=== PATIENT | female | born 1980 | race American Indian/Alaskan Native ===

== ENCOUNTER 2019-01-26 14:39 | Emergency (ER) | payer BC ==
--- NOTE | 2019-01-26 15:17 | Emergency Department Report ---
Blank Doc - Documentation Documentation: This is a 38-year-old female ramsey tpresents with pelvic pressure with some n/v. Denies any vaginal bleeding. stated has some vaginal discharge. This initial assessment/diagnostic orders/clinical plan/treatment(s) is/are subject to change based on patient's health status, clinical progression and re- assessment by fellow clinical providers in the ED. Further treatment and workup at subsequent clinical providers discretion. Patient/guardians urged not to elope from the ED as their condition may be serious if not clinically assessed and managed. Initial orders include: 1- Patient sent to [facility] for further evaluation and treatment 2- UA 3- wet prep/pelvic exam to be done
[2019-01-26] MEDS ORDERED: TYLENOL PO ONE (15:46)
[2019-01-26 16:25] LABS: HCG Qualitative,Urine Negative (Negative)
[2019-01-26 16:29] LABS: Bilirubin,Urine NEG (Negative); Blood,Urine NEG (Negative); Color,Urine Yellow (Yellow); Mucus,Urine FEW /HPF; Protein,Urine <15 mg/dL mg/dL (Negative); Urobilinogen,Urine < 2.0 mg/dL (<2.0)
[2019-01-26] MEDS ORDERED: TORADOL IV ONE ×2 (17:36→21:54)
[2019-01-26] MEDS ORDERED: ZOFRAN IV ONE (17:36)
[2019-01-26] MEDS ORDERED: NACL 0.9% 1000 ML 1,000 ML IV ONE (17:36)
--- NOTE | 2019-01-26 17:41 | Emergency Department Report ---
<ASHELY CAMARILLO RUFUSMARLA - Last Filed: 01/26/19 18:58> ED Abdominal Pain HPI - General Chief Complaint: Urogenital-Female Stated Complaint: VAGINAL PAIN Time Seen by Provider: 01/26/19 15:16 Source: patient Mode of arrival: Ambulatory Limitations: No Limitations - History of Present Illness Initial Comments: This is a 38-year-old -[place] female who presents to the emergency room with vaginal pressure with urination and nausea and vomiting that started this morning. Her last menstrual period was 12/11/2018, 8 abortions. She also reports urinary urgency, frequency, she feels, and diarrhea. She denies dysur ia. She is currently not on control. Patient states she does not believe she is risk of STD. She denies vaginal discharge, dysuria, fever. MD Complaint: abdominal pain -: This morning Location: suprapubic Radiation: none Migration to: no migration Severity: severe Severity scale (0 -10): 10 Quality: other (pressure) Consistency: intermittent Improves With: nothing Worsens With: nothing Associated Symptoms: nausea, vomiting, diarrhea. denies: fever, chills, constipation, dysuria, hematemesis, hematochezia, melena, hematuria, anorexia, syncope Treatments Prior to Arrival: NSAIDs - Related Data LMP Date: 12/11/18 Previous Rx's Medication Instructions Recorded Last Taken Type Acetaminophen/Codeine [Tylenol 1 tab PO Q6H PRN #15 tab 01/26/19 Unknown Rx /Codeine # 3 tab] Ketorolac [Toradol] 10 mg PO Q8H PRN #20 tablet 01/26/19 Unknown Rx Ondansetron [Zofran Odt] 4 mg PO Q8HR #15 tab.rapdis 01/26/19 Unknown Rx Tamsulosin [Flomax] 0.4 mg PO QDAY #7 cap 01/26/19 Unknown Rx cephALEXin [Keflex] 500 mg PO Q6HR #40 capsule 01/26/19 Unknown Rx Allergies Allergy/AdvReac Type Severity Reaction Status Date / Time No Known Allergies Allergy Unverified 01/26/19 14:50 ED Review of Systems Constitutional: denies: chills, fever Respiratory: denies: cough, shortness of breath, wheezing Cardiovascular: denies: chest pain, palpitations Gastrointestinal: abdominal pain, nausea, vomiting. denies: diarrhea Genitourinary: denies: urgency, dysuria, discharge Musculoskeletal: denies: back pain, joint swelling, arthralgia Skin: denies: rash, lesions Neurological: denies: headache, weakness, paresthesias Psychiatric: denies: anxiety, depression ED Past Medical Hx - Past Medical History Previous Medical History?: No - Surgical History Past Surgical History?: No - Social History Smoking Status: Never Smoker Substance Use Type: None - Medications Home Medications: Home Medications Medication Instructions Recorded Confirmed Last Taken Type Acetaminophen/Codeine [Tylenol 1 tab PO Q6H PRN #15 tab 01/26/19 Unknown Rx /Codeine # 3 tab] Ketorolac [Toradol] 10 mg PO Q8H PRN #20 tablet 01/26/19 Unknown Rx Ondansetron [Zofran Odt] 4 mg PO Q8HR #15 tab.rapdis 01/26/19 Unknown Rx Tamsulosin [Flomax] 0.4 mg PO QDAY #7 cap 01/26/19 Unknown Rx cephALEXin [Keflex] 500 mg PO Q6HR #40 capsule 01/26/19 Unknown Rx ED Physical Exam - General Limitations: No Limitations General appearance: alert, in no apparent distress - Respiratory Respiratory exam: Present: normal lung sounds bilaterally. Absent: respiratory distress - Cardiovascular Cardiovascular Exam: Present: regular rate, normal rhythm. Absent: systolic murmur, diastolic murmur, rubs, gallop - GI/Abdominal GI/Abdominal exam: Present: soft, tenderness (suprapubic tenderness), normal bowel sounds. Absent: distended, guarding, rebound, rigid, organomegaly, mass - Back Exam Back exam: Absent: CVA tenderness (R), CVA tenderness (L) - Neurological Exam Neurological exam: Present: alert, oriented X3 - Psychiatric Psychiatric exam: Present: normal affect, normal mood - Skin Skin exam: Present: warm, dry, intact, normal color. Absent: rash ED Medical Decision Making - Lab Data Result diagrams: 01/26/19 17:49 01/26/19 17:49 Lab Results 01/26/19 01/26/19 01/26/19 Range/Units 17:49 17:49 Unknown WBC 9.4 (4.5-11.0) K/mm3 RBC 4.20 (3.65-5.03) M/mm3 Hgb 13.8 (10.1-14.3) gm/dl Hct 40.4 (30.3-42.9) % MCV 96 (79-97) fl MCH 33 H (28-32) pg MCHC 34 (30-34) % RDW 12.9 L (13.2-15.2) % Plt Count 229 (140-440) K/mm3 Sodium 137 (137-145) mmol/L Potassium 3.7 (3.6-5.0) mmol/L Chloride 101.2 (98-107) mmol/L Carbon Dioxide 22 (22-30) mmol/L Anion Gap 18 mmol/L BUN 11 (7-17) mg/dL Creatinine 1.0 (0.7-1.2) mg/dL Estimated GFR > 60 ml/min BUN/Creatinine Ratio 11 % Glucose 108 H (65-100) mg/dL Calcium 9.1 (8.4-10.2) mg/dL Total Bilirubin 0.40 (0.1-1.2) mg/dL AST 15 (5-40) units/L ALT 11 (7-56) units/L Alkaline Phosphatase 50 (35-129) units/L Total Protein 7.5 (6.3-8.2) g/dL Albumin 4.3 (3.9-5) g/dL Albumin/Globulin Ratio 1.3 % Lipase 23 (13-60) units/L Urine Color Yellow (Yellow) Urine Turbidity Slightly-cloudy (Clear) Urine pH 6.0 (5.0-7.0) Ur Specific Crawford 1.015 (1.003-1.030) Urine Protein <15 mg/dl (Negative) mg/dL Urine Glucose (UA) Neg (Negative) mg/dL Urine Ketones Neg (Negative) mg/dL Urine Blood Neg (Negative) Urine Nitrite Neg (Negative) Ur Reducing Substances Not Reportable Urine Bilirubin Neg (Negative) Urine Ictotest Not Reportable Urine Urobilinogen < 2.0 (<2.0) mg/dL Ur Leukocyte Esterase Sm (Negative) Urine WBC (Auto) 25.0 H (0.0-6.0) /HPF Urine RBC (Auto) 3.0 (0.0-6.0) /HPF U Epithel Cells (Auto) 5.0 (0-13.0) /HPF Urine Mucus Few /HPF Urine HCG, Qual Negative (Negative) - Medical Decision Making Patient was examined by me. Vitals are normal and patient is in no acute distress. Obtained a labs and CT of abdomen and pelvis. Patient denies vaginal discharge, dysuria. As a side obtained. Patient given analgesics and normal saline. Chart signed to Alvarez TORIBIO pending CT of abdomen and pelvis. ED Disposition Clinical Impression: Kidney calculi, Acute urinary tract infection Abdominal pain Qualifiers: Abdominal location: lower abdomen, unspecified Qualified Code(s): R10.30 - Lower abdominal pain, unspecified Disposition: TO HOME OR SELFCARE Condition: Stable Instructions: Kidney Stones (ED), Abdominal Pain (ED), Urinary Tract Infection in Women (ED) Additional Instructions: TAKE MEDICATIONS WITH FOOD, DRINK PLENTY OF FLUIDS AND FOLLOW UP WITH THE UROLOGIST DR. SÁNCHEZ ADVISED. Prescriptions: Tamsulosin [Flomax] 0.4 mg PO QDAY #7 cap cephALEXin [Keflex] 500 mg PO Q6HR #40 capsule Ketorolac [Toradol] 10 mg PO Q8H PRN #20 tablet PRN Reason: Pain Acetaminophen/Codeine [Tylenol /Codeine # 3 tab] 1 tab PO Q6H PRN #15 tab PRN Reason: Pain , Severe (7-10) Ondansetron [Zofran Odt] 4 mg PO Q8HR #15 tab.rapdis Referrals: RHIANNA SÁNCHEZ MD [Staff Physician] - 3-5 Days Forms: Work/School Release Form(ED) Print Language: SOUTH AFRICAN <ZULEYMA HONG - Last Filed: 01/26/19 22:11> ED Review of Systems ROS: Stated complaint: VAGINAL PAIN Other details as noted in HPI ED Course Vital Signs 01/26/19 01/26/19 01/26/19 15:16 18:15 18:21 Temperature 98.4 F Pulse Rate 73 Respiratory 18 16 16 Rate Blood Pressure 152/106 Blood Pressure [Right] O2 Sat by Pulse 98 Oximetry 01/26/19 01/26/19 19:04 21:11 Temperature 98.5 F Pulse Rate 72 Respiratory 16 18 Rate Blood Pressure Blood Pressure 151/99 [Right] O2 Sat by Pulse 100 Oximetry - Reevaluation(s) Reevaluation #1: 01/26/19 21:57 Patient is alert and oriented 3 and is not in distress. Blood test results were reviewed and are unremarkable except for a urinalysis that shows acute urinary tract infection. The abdomen and pelvis CT scan without contrast shows a 6 mm stone distal to the left ureter just above the ureterovesicular junction. There is no evidence of a pelvic mass, fluid collection or inflammation. There are multiple bilateral nonobstructing calyceal stones. Patient was treated for pain in the ED and also received 1 g of Rocephin IV in the ED with normal saline IV fluids. On reevaluation, patient's pain is well- controlled and is discharged home with a referral to the urologist for follow- up. ED Medical Decision Making - Lab Data Result diagrams: 01/26/19 17:49 01/26/19 17:49 - Radiology Data Radiology results: report reviewed, image reviewed The abdomen and pelvis CT scan without contrast shows a 6 mm stone distal to the left ureter just above the ureterovesicular junction. There is no evidence of a pelvic mass, fluid collection or inflammation. There are multiple bilateral nonobstructing calyceal stones. - Medical Decision Making Patient is alert and oriented 3 and is not in distress. Blood test results were reviewed and are unremarkable except for a urinalysis that shows acute urinary tract infection. The abdomen and pelvis CT scan without contrast shows a 6 mm stone distal to the left ureter just above the ureterovesicular junction. There is no evidence of a pelvic mass, fluid collection or inflammation. There are multiple bilateral nonobstructing calyceal stones. Patient was treated for pain in the ED and also received 1 g of Rocephin IV in the ED with normal saline IV fluids. On reevaluation, patient's pain is well- controlled and is discharged home with a referral to the urologist Dr. Sánchez for outpatient follow-up. - Differential Diagnosis Abdominal pain; Kidney stones; Acute urinary tract infection Critical care attestation.: If time is entered above; I have spent that time in minutes in the direct care of this critically ill patient, excluding procedure time. ED Disposition Is pt being admited?: No Does the pt Need Aspirin: No Time of Disposition: 22:09
[2019-01-26 17:58] LABS: Hematocrit 40.4 % (30.3-42.9); Hemoglobin 13.8 gm/dl (10.1-14.3); Mean Corpuscular HGB Conc 34 % (30-34); Mean Corpuscular Volume 96 fl (79-97); Platelet Count 229 K/mm3 (140-440); Red Cell Distribution Width 12.9 % (13.2-15.2)
[2019-01-26 18:23] LABS: Alanine Aminotransferase 11 units/L (7-56); Albumin 4.3 g/dL (3.9-5); BUN/Creatinine Ratio 11; Blood Urea Nitrogen 11 mg/dL (7-17); Calcium 9.1 mg/dL (8.4-10.2); Hemolysis Index 7
[2019-01-26] MEDS ORDERED: MORPHINE IV ONE ×2 (18:57→21:54)
[2019-01-26] MEDS ORDERED: ROCEPHIN/NS 1 GM/50 ML 1 GM/50 ML BAG IV ONE (19:08)
--- NOTE | 2019-01-26 19:56 | Cat Scan Report ---
CT abdomen pelvis wo con INDICATION: lower abdominal pain, rule out stones. TECHNIQUE: All CT scans at this location are performed using the following dose modulation technique: Automated exposure control. CONTRAST: None. COMPARISON: None available. CT abdomen: Evaluation the parenchymal organs demonstrates 3 1 mm nonobstructing right renal stones. 3 left-sided stones measure 1-2 mm. There is moderate distention of the left renal collecting system and ureter. A small amount of fluid is seen adjacent to the left kidney. The remaining parenchymal or reinaldo are unremarkable. Negative for abdominal mass, fluid collection or inflammation. The bowel is not dilated or thickened. CT PELVIS: Distention of the left ureter extends to the level of a 6 mm stone just above the ureterov esical junction. Negative for pelvic mass, fluid collection or inflammation. IMPRESSION: 1. 6 mm stone distal left ureter with relatively high-grade obstruction and pyelosinus backflow. 2. Small nonobstructing calyceal stones. Signer Name: Nilson Knight MD Signed: 01/26/2019 7:52 PM Workstation Name: [id number]
[2019-01-26] MEDS ORDERED: REGLAN IV ONE (21:55)
[2019-01-26 22:58] VITALS: BP 147/98
== END 2019-01-26 22:59 | disposition home or self-care (01) ==
LOC: ED 14:39
DX: N39.0 Urinary tract infection, site not specified (principal); N20.0 Calculus of kidney; R11.2 Nausea with vomiting, unspecified; Z79.899 Other long term (current) drug therapy
CPT/HCPCS: 36415; 74176; 80053; 81001; 81025; 83690; 85027; 87086; 96361; 96365; 96375; 96376; 99284; J0696; J1885; J2270; J2405; J2765; J7030

== ENCOUNTER 2019-01-28 13:17 | Inpatient (IN) | payer BC ==
[2019-01-28] MEDS ORDERED: ANCEF/STERILE WATER 2 GM/20 ML IV NR (14:00)
--- NOTE | 2019-01-28 14:15 | Anesthesia Consultation ---
Anesthesia Consult and Med Hx Date of service: 01/28/19 - Airway Anesthetic Teeth Evaluation: Poor, Chipped, Edentulous ROM Head & Neck: Adequate Mental/Hyoid Distance: Adequate Mallampati Class: Class II Intubation Access Assessment: Good - Pulmonary Exam CTA: Yes - Cardiac Exam Cardiac Exam: RRR - Pre-Operative Health Status ASA Pre-Surgery Classification: ASA2 Proposed Anesthetic Plan: General
--- NOTE | 2019-01-28 14:15 | Anesthesia Day of Surgery ---
Anesthesia Day of Surgery - Day of Surgery Patient Examined: Yes Patient H&P Reviewed: Yes Patient is NPO: Yes
[2019-01-28] MEDS ORDERED: SUBLIMAZE IV SCH (14:22)
[2019-01-28] MEDS ORDERED: LACTATED RINGERS 1,000 ML IV SCH (15:00)
[2019-01-28] MEDS ORDERED: WATER FOR IRRIG STERILE IR ONE (16:05)
[2019-01-28] MEDS ORDERED: DIPRIVAN 10 MG/ML IV ONE (16:12)
[2019-01-28] MEDS ORDERED: SUBLIMAZE ONE ×2 (16:14→17:08)
[2019-01-28] MEDS ORDERED: DILAUDID ONE (16:32)
[2019-01-28] MEDS ORDERED: XYLOCAINE CARDIAC IV ONE (16:42)
[2019-01-28] MEDS ORDERED: ZOFRAN ONE (16:54)
[2019-01-28] MEDS ORDERED: DECADRON ONE (16:54)
[2019-01-28] MEDS ORDERED: TORADOL ONE (17:07)
[2019-01-28] MEDS ORDERED: NORCO 5/325 PO PRN (17:27)
[2019-01-28] MEDS ORDERED: SODIUM CHLORIDE FLUSH SYRINGE 10 ML IV PRN (17:27)
[2019-01-28] MEDS ORDERED: AMBIEN PO PRN (17:27)
[2019-01-28] MEDS ORDERED: TYLENOL PO PRN (17:27)
--- NOTE | 2019-01-28 17:27 | Short Stay Summary ---
Short Stay Documentation Date of service: 01/28/19 - History H&P: obtained from office - Allergies and Medications Current Medications: Allergies No Known Allergies Allergy (Unverified 01/26/19 14:50) Home Medications Medication Instructions Recorded Confirmed Last Taken Type Acetaminophen/Codeine [Tylenol 1 tab PO Q6H PRN #15 tab 01/26/19 Unknown Rx /Codeine # 3 tab] Ketorolac [Toradol] 10 mg PO Q8H PRN #20 tablet 01/26/19 Unknown Rx Ondansetron [Zofran Odt] 4 mg PO Q8HR #15 tab.rapdis 01/26/19 Unknown Rx Tamsulosin [Flomax] 0.4 mg PO QDAY #7 cap 01/26/19 Unknown Rx cephALEXin [Keflex] 500 mg PO Q6HR #40 capsule 01/26/19 Unknown Rx Active Medications Cefazolin Sodium (Ancef/Sterile Water 2 Gm/20 Ml) 2 gm IV PREOP NR Stop: 01/28/19 23:59 Fentanyl (Sublimaze) 50 mcg IV ONCE VINICIUS Stop: 01/28/19 23:59 Last Admin: 01/28/19 14:30 Dose: 50 mcg Documented by: Lactated Ringer's (Lactated Ringers) 1,000 mls @ 100 mls/hr IV DIRECT VINICIUS Last Admin: 01/28/19 14:35 Dose: 100 mls/hr Documented by: - Brief post op/procedure progress note Date of procedure: 01/28/19 Pre-op diagnosis: left distal ureteral stone---6mm Post-op diagnosis: other (impacted with edema & stricture) Procedure: cysto, bilat rpg, left ureteroscopy attempted stent placement Anesthesia: GETA Surgeon: RHIANNA SHERIDAN Estimated blood loss: minimal Pathology: none Condition: stable - Hospital course Hospital course: unable to see stone unable to place stent significant edema spoke with Dr. Churchill---will place perc tube home with perc tube - Disposition Condition at discharge: Stable Disposition: DC-01 TO HOME OR SELFCARE Short Stay Discharge Plan Follow up with: ATIF ANDERSON MD [Primary Care Provider] - 7 Days
[2019-01-28] MEDS: NORMODYNE IV PRN (17:35)
[2019-01-28] MEDS ORDERED: NORMODYNE IV ONE (17:46)
[2019-01-28] MEDS ORDERED: NACL 0.45% 1000 ML 1,000 ML IV SCH (18:00)
[2019-01-28] MEDS ORDERED: NACL 0.9% 1,000 ML IR ONE (18:19)
--- NOTE | 2019-01-28 18:40 | Event Note ---
Date: 01/28/[address] scan. Mild left hydronephrosis with mild to moderate hydroureter and small left UVJ calculi with request for left nephrostomy tube placement due to unsuccessful left renal stent attempt. Plan for nephrostomy tube placement tomorrow. NPO after MN except meds. Will likely convert to ureteral stent placement in 1 week and then remove nephrostomy tube.
[2019-01-28 19:23] LABS: Hematocrit 36.6 % (30.3-42.9); Hemoglobin 12.1 gm/dl (10.1-14.3); Mean Corpuscular HGB Conc 33 % (30-34); Mean Corpuscular Volume 96 fl (79-97); Platelet Count 119 K/mm3 (140-440); Red Blood Count 3.82 M/mm3 (3.65-5.03); Red Cell Distribution Width 13.3 % (13.2-15.2)
[2019-01-28 19:25] LABS: Calcium 8.4 mg/dL (8.4-10.2)
[2019-01-28 19:32] LABS: INR 1.12 (0.87-1.13)
[2019-01-28 19:33] LABS: Partial Thromboplastin Time 30.5 Sec. (24.2-36.6)
[2019-01-28 21:06] LABS: Total Cells Counted 100
[2019-01-28 21:07] LABS: Band Neutrophils # (Manual) 0.3 K/mm3; Basophils % (Manual) 0 % (0.0-1.8); Monocytes % (Manual) 0 % (0.0-7.3)
[2019-01-28 21:08] LABS: Anisocytosis 1+; Platelet Estimate Consistent w Auto
[2019-01-28] MEDS: ZOFRAN IV PRN (21:26)
[2019-01-29] MEDS: MORPHINE IV PRN ×5 (01:03→20:21)
[2019-01-29 05:28] LABS: Hematocrit 35.5 % (30.3-42.9); Hemoglobin 11.9 gm/dl (10.1-14.3); Mean Corpuscular HGB Conc 34 % (30-34); Mean Corpuscular Volume 95 fl (79-97); Platelet Count 125 K/mm3 (140-440); Red Blood Count 3.74 M/mm3 (3.65-5.03); Red Cell Distribution Width 13.1 % (13.2-15.2)
[2019-01-29 05:51] LABS: Calcium 8.4 mg/dL (8.4-10.2)
[2019-01-29 07:20] LABS: Band Neutrophils # (Manual) 1.2 K/mm3; Basophils % (Manual) 0 % (0.0-1.8); Eosinophils % (Manual) 0 % (0.0-4.3); Total Cells Counted 100
[2019-01-29 07:22] LABS: Platelet Estimate Consistent w Auto
--- NOTE | 2019-01-29 08:23 | Consultation ---
History of Present Illness - Reason for Consult Consult date: 01/29/19 Left hydronephrosis - History of Present Illness 38-year-old female with left-sided flank pain and suprapubic pain nausea and vomiting and presented to the emergency room on 01/26/19 who then saw urologist Dr. Sánchez in the office who scheduled her for stent placement. Stent placement was unsuccessful and request for interventional radiology to assist with percutaneous nephrostomy was performed. Patient was visited this morning and brought downstairs for nephrostomy tube placement. Past History Past Medical History: No medical history Past Surgical History: No surgical history Social history: no significant social history Family history: no significant family history Medications and Allergies Allergies Allergy/AdvReac Type Severity Reaction Status Date / Time No Known Allergies Allergy Unverified 01/26/19 14:50 Home Medications Medication Instructions Recorded Confirmed Last Taken Type Acetaminophen/Codeine [Tylenol 1 tab PO Q6H PRN #15 tab 01/26/19 Unknown Rx /Codeine # 3 tab] Ketorolac [Toradol] 10 mg PO Q8H PRN #20 tablet 01/26/19 Unknown Rx Ondansetron [Zofran Odt] 4 mg PO Q8HR #15 tab.rapdis 01/26/19 Unknown Rx Tamsulosin [Flomax] 0.4 mg PO QDAY #7 cap 01/26/19 Unknown Rx cephALEXin [Keflex] 500 mg PO Q6HR #40 capsule 01/26/19 Unknown Rx Active Meds: Active Medications Acetaminophen (Tylenol) 650 mg PO Q4H PRN PRN Reason: Pain MILD(1-3)/Fever >100.5/CAI Acetaminophen/Hydrocodone Bitart ([place]ryman 5/325) 2 each PO Q6H PRN PRN Reason: Pain, Moderate (4-6) Lactated Ringer's (Lactated Ringers) 1,000 mls @ 100 mls/hr IV DIRECT VINICIUS Last Admin: 01/28/19 14:35 Dose: 100 mls/hr Documented by: Sodium Chloride (Nacl 0.45% 1000 Ml) 1,000 mls @ 100 mls/hr IV DIRECT VINICIUS Levofloxacin/Dextrose (Levaquin 500mg/100ml) 500 mg in 100 mls @ 100 mls/hr IV Q24HR VINICIUS; Protocol Labetalol HCl (Normodyne) 5 mg IV Q10MIN PRN PRN Reason: Systollic B/P greater than 160 Last Admin: 01/28/19 17:35 Dose: 5 mg Documented by: Morphine Sulfate (Morphine) 2 mg IV Q4H PRN PRN Reason: Pain, Moderate (4-6) Last Admin: 01/29/19 07:18 Dose: 2 mg Documented by: Ondansetron HCl (Zofran) 4 mg IV Q8H PRN PRN Reason: Nausea And Vomiting Last Admin: 01/28/19 21:26 Dose: 4 mg Documented by: Sodium Chloride (Sodium Chloride Flush Syringe 10 Ml) 10 ml IV BID VINICIUS Sodium Chloride (Sodium Chloride Flush Syringe 10 Ml) 10 ml IV PRN PRN PRN Reason: LINE FLUSH Zolpidem Tartrate (Ambien) 5 mg PO QHS PRN PRN Reason: Insomnia Review of Systems All systems: negative (see HPI) Exam - Constitutional Vitals: Temp Pulse Resp BP Pulse Ox 98.1 F 80 20 134/82 100 01/29/19 07:11 01/29/19 07:11 01/29/19 07:11 01/29/19 07:11 01/29/19 07:11 General appearance: Present: no acute distress (recently medicated) - EENT Eyes: Present: EOM intact ENT: hearing intact - Respiratory Respiratory effort: normal - Abdominal General gastrointestinal: Present: non-tender (recently medicated) - Psychiatric Psychiatric: appropriate mood/affect, cooperative Results - Labs CBC & Chem 7: 01/29/19 04:29 01/29/19 04:29 Labs: Abnormal lab results 01/28/19 01/28/19 01/29/19 Range/Units 18:55 18:55 04:29 WBC 14.8 H 15.0 H (4.5-11.0) K/mm3 RDW 13.1 L (13.2-15.2) % Plt Count 119 L 125 L (140-440) K/mm3 Seg Neuts % (Manual) 96.0 H 87.0 H (40.0-70.0) % Lymphocytes % (Manual) 1.0 L 4.0 L (13.4-35.0) % Seg Neutrophils # Man 14.2 H 13.1 H (1.8-7.7) K/mm3 Lymphocytes # (Manual) 0.1 L 0.6 L (1.2-5.4) K/mm3 Sodium 136 L (137-145) mmol/L Potassium 3.5 L (3.6-5.0) mmol/L Carbon Dioxide 19 L (22-30) mmol/L BUN 18 H (7-17) mg/dL Creatinine 1.6 H D (0.7-1.2) mg/dL Glucose 103 H (65-100) mg/dL 01/29/19 Range/Units 04:29 WBC (4.5-11.0) K/mm3 RDW (13.2-15.2) % Plt Count (140-440) K/mm3 Seg Neuts % (Manual) (40.0-70.0) % Lymphocytes % (Manual) (13.4-35.0) % Seg Neutrophils # Man (1.8-7.7) K/mm3 Lymphocytes # (Manual) (1.2-5.4) K/mm3 Sodium 136 L (137-145) mmol/L Potassium (3.6-5.0) mmol/L Carbon Dioxide (22-30) mmol/L BUN (7-17) mg/dL Creatinine 1.7 H (0.7-1.2) mg/dL Glucose 134 H (65-100) mg/dL - Imaging and Cardiology CT scan - abdomen: report reviewed, image reviewed Assessment and Plan 38-year-old female with left-sided obstructing ureteral calculi with mild hydronephrosis and hydroureter with urinary tract infection, leukocytosis, and acute renal failure who presents for left-sided nephrostomy tube placement after unsuccessful attempt at ureteral stent placement. Plan for left-sided nephrostomy tube placement. Plan for ureteral stent placement in 1-2 weeks. Risks, benefits, and alternatives discussed.
[2019-01-29] MEDS ORDERED: NACL 0.9% 500 ML IR ONE (08:30)
[2019-01-29] MEDS ORDERED: LEVAQUIN 500MG/100ML 500 MG/100 ML BAG IV ONE (08:31)
[2019-01-29 08:54] LABS: HCG Qualitative,Urine Negative (Negative)
--- NOTE | 2019-01-29 08:54 | Operative Report ---
Operative Report Operative Report: EXAM: 1. Left sided 8 Micronesian fluoroscopic guided percutaneous nephrostomy tube placement 2. Left sided nephrostogram and antegrade ureterogram DATE: 01/29/19 MULTINEEDLE SHIRRER: ZULEYMA FINN MD INDICATION: Left-sided ureteral calculi with leukocytosis and acute renal failure requiring nephrostomy tube placement MEDICATIONS: Please see nursing report for full details. DEVICES: 8 Micronesian nephrostomy tube CONTRAST: Please see blender laborer report for full details. PROCEDURE: The risks, benefits, and alternatives were discussed with the patient; informed consent was obtained. The patient was prepped and draped in a sterile fashion in the prone position. The left flank was evaluated with ultrasound. Under direct fluoroscopic guidance, a left lower pole posterior calyx was punctured with a 21-gauge echo tipped needle. Wire was passed under direct fluoroscopic guidance into the central portion of the collecting system and into the ureter. Needle was exchanged for a 6 Micronesian transitional dilator Accustick system. After the dilator was advanced over the wire, the wire, inner metal cannula and inner dilator were removed. Contrast was injected confirming position within the collecting system. 0.035 inch wire was advanced through the transitional dilator. Transitional dilator was exchanged for an 8 Micronesian dilator. 8 Micronesian nephrostomy tube was then advanced over the wire. Wire was removed. The nephrostomy tube was positioned in the renal pelvis and the cope loop was successfully deployed. The nephrostomy tube was secured with 2-0 Ethilon. StatLock device was used to secure the nephrostomy tube. Patient tolerated the procedure well and was transferred out of the angiography suite in stable condition. FINDINGS: 1. Under direct ultrasound guidance, a posterior lower pole calyx was punctured with a 21-gauge needle. 2. Nephrostograms and antegrade ureterogram of the left collecting system demonstrates debris within the collecting system compatible with mild to moderate pyonephrosis and pyoureter. 3. Successful nephrostomy tube placement in the left collecting system through a lower pole posterior calyx. IMPRESSION: Nephrostograms and antegrade ureterogram of the left collecting system demonstrates debris within the collecting system and purulent drainage compatible with moderate pyonephrosis and pyoureter. Successful nephrostomy tube placement in the left collecting system through a lower pole posterior calyx.
[2019-01-29] MEDS: VERSED ONE ×2 (09:14→09:32)
[2019-01-29] MEDS: SUBLIMAZE ONE ×2 (09:14→09:32)
[2019-01-29] MEDS: XYLOCAINE 2% INFILTRATI ONE ×3 (09:17→09:31)
[2019-01-29] MEDS ORDERED: SUBLIMAZE ONE (09:47)
[2019-01-29] MEDS: NORMODYNE IV PRN (11:06)
--- NOTE | 2019-01-29 11:58 | Progress Note ---
Subjective Date of service: 01/29/19 Interval history: left distal ureteral stone---6mm (impacted with edema & stricture) 01-28-19-- cysto, bilat rpg, left ureteroscopy attempted stent placement today (01-29-19)---perc tube---Dr. Churchill pt needs inpt status due to sepsis continue IV abx questions answered family at bedside Objective - Constitutional Vitals: Vital Signs - 12hr 01/29/19 01/29/19 01/29/19 00:26 01:03 04:25 Temperature 97.8 F 98.1 F Pulse Rate 71 71 Respiratory 20 16 20 Rate Blood Pressure 126/87 124/81 O2 Sat by Pulse 99 100 Oximetry 01/29/19 01/29/19 01/29/19 07:11 10:06 10:28 Temperature 98.1 F 98.0 F Pulse Rate 80 88 Respiratory 20 20 Rate Blood Pressure 134/82 165/110 O2 Sat by Pulse 100 97 100 Oximetry - Labs CBC & Chem 7: 01/29/19 04:29 01/29/19 04:29 Labs: Abnormal lab results 01/28/19 01/28/19 01/29/19 Range/Units 18:55 18:55 04:29 WBC 14.8 H 15.0 H (4.5-11.0) K/mm3 RDW 13.1 L (13.2-15.2) % Plt Count 119 L 125 L (140-440) K/mm3 Seg Neuts % (Manual) 96.0 H 87.0 H (40.0-70.0) % Lymphocytes % (Manual) 1.0 L 4.0 L (13.4-35.0) % Seg Neutrophils # Man 14.2 H 13.1 H (1.8-7.7) K/mm3 Lymphocytes # (Manual) 0.1 L 0.6 L (1.2-5.4) K/mm3 Sodium 136 L (137-145) mmol/L Potassium 3.5 L (3.6-5.0) mmol/L Carbon Dioxide 19 L (22-30) mmol/L BUN 18 H (7-17) mg/dL Creatinine 1.6 H D (0.7-1.2) mg/dL Glucose 103 H (65-100) mg/dL 01/29/19 Range/Units 04:29 WBC (4.5-11.0) K/mm3 RDW (13.2-15.2) % Plt Count (140-440) K/mm3 Seg Neuts % (Manual) (40.0-70.0) % Lymphocytes % (Manual) (13.4-35.0) % Seg Neutrophils # Man (1.8-7.7) K/mm3 Lymphocytes # (Manual) (1.2-5.4) K/mm3 Sodium 136 L (137-145) mmol/L Potassium (3.6-5.0) mmol/L Carbon Dioxide (22-30) mmol/L BUN (7-17) mg/dL Creatinine 1.7 H (0.7-1.2) mg/dL Glucose 134 H (65-100) mg/dL Medications & Allergies - Medications Allergies/Adverse Reactions: Allergies No Known Allergies Allergy (Unverified 01/26/19 14:50) Home Medications: Home Medications Medication Instructions Recorded Confirmed Last Taken Type Acetaminophen/Codeine [Tylenol 1 tab PO Q6H PRN #15 tab 01/26/19 Unknown Rx /Codeine # 3 tab] Ketorolac [Toradol] 10 mg PO Q8H PRN #20 tablet 01/26/19 Unknown Rx Ondansetron [Zofran Odt] 4 mg PO Q8HR #15 tab.rapdis 01/26/19 Unknown Rx Tamsulosin [Flomax] 0.4 mg PO QDAY #7 cap 01/26/19 Unknown Rx cephALEXin [Keflex] 500 mg PO Q6HR #40 capsule 01/26/19 Unknown Rx Active Medications: Generic Name Dose Route Start Last Admin Trade Name Freq PRN Reason Stop Dose Admin Acetaminophen 650 mg 01/28/19 17:27 Tylenol PO Q4H PRN Pain MILD(1-3)/Fever >100.5/CAI Acetaminophen/Hydrocodone Bitart 2 each 01/28/19 17:27 [place] 5/325 PO Q6H PRN Pain, Moderate (4-6) Lactated Ringer's 1,000 mls @ 100 mls/hr 01/28/19 15:00 01/28/19 14:35 Lactated Ringers IV 100 mls/hr DIRECT VINICIUS Administration Sodium Chloride 1,000 mls @ 100 mls/hr 01/28/19 18:00 Nacl 0.45% 1000 Ml IV DIRECT VINICIUS Levofloxacin/Dextrose 500 mg in 100 mls @ 100 mls/hr 01/28/19 18:00 Levaquin 500mg/100ml IV Q24HR VINICIUS Protocol Labetalol HCl 5 mg 01/28/19 18:27 01/28/19 17:35 Normodyne IV 5 mg Q10MIN PRN Administration Systollic B/P greater than 160 Morphine Sulfate 2 mg 01/28/19 17:27 01/29/19 07:18 Morphine IV 2 mg Q4H PRN Administration Pain, Moderate (4-6) Ondansetron HCl 4 mg 01/28/19 17:27 01/28/19 21:26 Zofran IV 4 mg Q8H PRN Administration Nausea And Vomiting Sodium Chloride 10 ml 01/28/19 22:00 Sodium Chloride Flush Syringe 10 Ml IV BID VINICIUS Sodium Chloride 10 ml 01/28/19 17:27 Sodium Chloride Flush Syringe 10 Ml IV PRN PRN LINE FLUSH Zolpidem Tartrate 5 mg 01/28/19 17:27 Ambien PO QHS PRN Insomnia
[2019-01-29] MEDS: SODIUM CHLORIDE FLUSH SYRINGE 10 ML IV SCH (16:08)
[2019-01-29] MEDS: ZOFRAN IV PRN (19:42)
--- NOTE | 2019-01-29 20:33 | Operative Report ---
PREOPERATIVE DIAGNOSIS: Left distal ureteral stone, 6 mm. POSTOPERATIVE DIAGNOSIS: Left distal ureteral stone, 6 mm (impacted stone). PROCEDURE PERFORMED: Cystoscopy, bilateral retrograde pyelograms, right ureteroscopy, attempted stent placement. SURGEON: Edward Sánchez MD ANESTHESIA: General. ESTIMATED BLOOD LOSS: Minimal. FLUIDS: Crystalloid. COMPLICATIONS: Complicated procedure. INDICATIONS: This patient is a 38-year-old female presented to the office for left flank pain. She had a CT abdomen and pelvis in the Emergency Room at [facility] and was found to have a 6 mm distal stone. She had persistent left flank pain that was worsening over the last 24 hours and wanted intervention. She was scheduled for surgery. DESCRIPTION OF PROCEDURE: The patient was taken to the operative suite, placed in a supine position. After adequate general anesthesia, she was placed in a dorsal lithotomy position, prepped and draped in a sterile fashion. Pancystourethroscopy was performed with a 22-[place] Storz cystoscope. No bladder pathology. Both ureteral orifices were in normal position. No tumors or stones were noted. Bilateral retrograde pyelograms were obtained with an 8-[place] catheter and 8 mL of contrast. No filling defects or obstruction on the right. Left side just distal to the stone could be opacified as far as approximately 2 cm and then complete blockage. It appeared that I was able to get a 0.035 Glidewire up; however, multiple attempts to advance the ureteroscope, a 6-[place]inn[place] ureteroscope was unsuccessful and could not see the stone due to significant edema in attempts to pass the wire through the ureteroscope. I was able to get one wire past. It is not clear if the wire was in the collecting system or outside of it and therefore, I removed the wire. [place] catheter was placed. The patient was extubated and taken to recovery room. Consultation with Dr. Churchill intraoperatively and will see the patient afterwards for nephrostomy tube placement. JOB# [id number] JULIANNA/ANTON
[2019-01-30] MEDS: MORPHINE IV PRN ×2 (04:29→09:10)
[2019-01-30] MEDS: SODIUM CHLORIDE FLUSH SYRINGE 10 ML IV SCH (08:54)
[2019-01-30 08:57] LABS: Basophils % (Auto) 0.2 % (0.0-1.8); Eosinophils % (Auto) 0.3 % (0.0-4.3); Hematocrit 32.8 % (30.3-42.9); Hemoglobin 10.9 gm/dl (10.1-14.3); Lymphocytes # (Auto) 1.5 K/mm3 (1.2-5.4); Lymphocytes % (Auto) 10.6 % (13.4-35.0); Mean Corpuscular HGB Conc 33 % (30-34); Mean Corpuscular Volume 96 fl (79-97); Monocytes # (Auto) 0.9 K/mm3 (0.0-0.8); Monocytes % (Auto) 6.7 % (0.0-7.3); Platelet Count 115 K/mm3 (140-440); Red Blood Count 3.42 M/mm3 (3.65-5.03); Red Cell Distribution Width 13.1 % (13.2-15.2)
--- NOTE | 2019-01-30 08:57 | Progress Note ---
Subjective Date of service: 01/30/19 Interval history: left distal ureteral stone---6mm (impacted with edema & stricture) 01-28-19-- cysto, bilat rpg, left ureteroscopy attempted stent placement (01-29-19)---perc tube---Dr. Churchill drinking coffee, she has no appetite pt needs inpt status due to sepsis continue IV abx questions answered family at bedside (mother & male friend) pt not happy with nursing care - spoke with risk mgmt (Jil) Objective - Constitutional Vitals: Vital Signs - 12hr 01/29/19 01/30/19 01/30/19 22:00 00:47 00:48 Temperature 98.1 F Pulse Rate 89 89 Respiratory 16 Rate Respiratory 17 Rate [left back ] Blood Pressure 117/80 O2 Sat by Pulse 100 100 Oximetry 01/30/19 01/30/19 01/30/19 04:29 05:04 07:47 Temperature 97.9 F 98.1 F Pulse Rate 78 86 Respiratory 17 18 18 Rate Respiratory Rate [left back ] Blood Pressure 128/92 126/85 O2 Sat by Pulse 100 100 Oximetry - Labs CBC & Chem 7: 01/29/19 04:29 01/29/19 04:29 Medications & Allergies - Medications Allergies/Adverse Reactions: Allergies No Known Allergies Allergy (Unverified 01/26/19 14:50) Home Medications: Home Medications Medication Instructions Recorded Confirmed Last Taken Type Acetaminophen/Codeine [Tylenol 1 tab PO Q6H PRN #15 tab 01/26/19 Unknown Rx /Codeine # 3 tab] Ketorolac [Toradol] 10 mg PO Q8H PRN #20 tablet 01/26/19 Unknown Rx Ondansetron [Zofran Odt] 4 mg PO Q8HR #15 tab.rapdis 01/26/19 Unknown Rx Tamsulosin [Flomax] 0.4 mg PO QDAY #7 cap 01/26/19 Unknown Rx cephALEXin [Keflex] 500 mg PO Q6HR #40 capsule 01/26/19 Unknown Rx Active Medications: Generic Name Dose Route Start Last Admin Trade Name Freq PRN Reason Stop Dose Admin Acetaminophen 650 mg 01/28/19 17:27 Tylenol PO Q4H PRN Pain MILD(1-3)/Fever >100.5/CAI Acetaminophen/Hydrocodone Bitart 2 each 01/28/19 17:27 [place] 5/325 PO Q6H PRN Pain, Moderate (4-6) Lactated Ringer's 1,000 mls @ 100 mls/hr 01/28/19 15:00 01/28/19 14:35 Lactated Ringers IV 100 mls/hr DIRECT VINICIUS Administration Sodium Chloride 1,000 mls @ 100 mls/hr 01/28/19 18:00 01/29/19 12:13 Nacl 0.45% 1000 Ml IV 100 mls/hr DIRECT VINICIUS Administration Levofloxacin/Dextrose 500 mg in 100 mls @ 100 mls/hr 01/28/19 18:00 Levaquin 500mg/100ml IV Q24HR VINICIUS Protocol Labetalol HCl 5 mg 01/28/19 18:27 01/29/19 11:06 Normodyne IV 5 mg Q10MIN PRN Administration Systollic B/P greater than 160 Morphine Sulfate 2 mg 01/28/19 17:27 01/30/19 04:29 Morphine IV 2 mg Q4H PRN Administration Pain, Moderate (4-6) Ondansetron HCl 4 mg 01/28/19 17:27 01/29/19 19:42 Zofran IV 4 mg Q8H PRN Administration Nausea And Vomiting Sodium Chloride 10 ml 01/28/19 22:00 01/30/19 08:54 Sodium Chloride Flush Syringe 10 Ml IV Not Given BID VINICIUS Sodium Chloride 10 ml 01/28/19 17:27 Sodium Chloride Flush Syringe 10 Ml IV PRN PRN LINE FLUSH Zolpidem Tartrate 5 mg 01/28/19 17:27 Ambien PO QHS PRN Insomnia
[2019-01-30 09:24] LABS: BUN/Creatinine Ratio 10; Blood Urea Nitrogen 10 mg/dL (7-17); Calcium 8.2 mg/dL (8.4-10.2); Hemolysis Index 5
--- NOTE | 2019-01-30 09:51 | Fluoroscopy Report ---
12 fluoroscopic images submitted Indication: Intraoperative localization, reported left ureteral stricture Impression: 12 images of the abdomen were submitted for documentation purposes with radiology jerrod dimas. Patient had bilateral retrograde urography with left-sided ureteroscopy and dilatation proced ure. Please refer to the operative note for complete details. Fluoroscopic time: 3 minutes and 30 seconds Signer Name: Reinier Calhoun MD Signed: 01/30/2019 9:47 AM Workstation Name: [id number]
[2019-01-30] MEDS: LEVAQUIN 500MG/100ML 500 MG/100 ML BAG IV SCH ×2 (10:33→10:45)
[2019-01-30 16:39] VITALS: BP 127/87
--- NOTE | 2019-01-30 17:41 | Discharge Summary ---
Providers - Providers Date of Admission: 01/29/19 11:18 Date of discharge: 01/30/19 Attending physician: RHIANNA SHERIDAN Primary care physician: ATIF ANDERSON Hospitalization Condition: Stable Pertinent studies: left perc ---Dr. Churchill Disposition: DC-01 TO HOME OR SELFCARE Core Measure Documentation - Palliative Care Palliative Care/ Comfort Measures: Not Applicable - Core Measures Any of the following diagnoses?: none - VTE Discharge Requirements Deep Vein Thrombosis/Pulmonary Embolism Present on Admission: No Has pt received <5 days of overlap therapy or INR<2.0: No Anticoagulant overlap therapy prescribed at discharge: No Contraindication No Overlap Therapy order at DC: Medical Contraindication - Acute ME Discharge Requirements Aspirin at discharge: No Reason for no aspirin on DC: Surgical contraindication ALEJANDRINA/ARB for LVSD if EF <40%: Not Applicable Reason for no ALEJANDRINA/ARB: Medical contraindication Beta opal at discharge: No Reason for no beta opal on DC: Medical contraindication Statin for LDL = or >100 mg/dl on DC: Not Applicable Reason for no statin on DC: Surgical contraindication - Heart Failure Discharge Requirements ALEJANDRINA/ARB for LVSD if EF <40%: Not Applicable Reason for no ALEJANDRINA/ARB: Medical contraindication Beta opal at discharge: No Reason for no beta opal on DC: Medical contraindication - Stroke Discharge Requirements Statin for LDL = or >70 mg/dl on DC: Not Applicable Reason for no statin on DC: Medical Contraindication Anticoag for atrial fib/atrial flutter: Not Applicable Reason for no anticoag for AF/F on DC: Medical Contraindication Antithrombotic for ischemic stroke: No Reason for no antithrombotic on DC: Medical Contraindication Exam - Constitutional Vitals: Temp Pulse Resp BP Pulse Ox 99.1 F 83 18 127/87 99 01/30/19 16:23 01/30/19 16:23 01/30/19 16:23 01/30/19 16:23 01/30/19 16:23 General appearance: Present: no acute distress, well-nourished - EENT Eyes: Present: PERRL ENT: hearing intact, clear oral mucosa - Neck Neck: Present: supple, normal ROM - Respiratory Respiratory effort: normal Respiratory: bilateral: CTA - Cardiovascular Heart Sounds: Present: S1 & S2. Absent: rub, click - Extremities Extremities: pulses symmetrical, No edema Peripheral Pulses: within normal limits - Abdominal General gastrointestinal: Present: soft, non-tender, non-distended, normal bowel sounds Female genitourinary: Present: normal - Integumentary Integumentary: Present: clear, warm, dry - Musculoskeletal Musculoskeletal: gait normal, strength equal bilaterally - Psychiatric Psychiatric: appropriate mood/affect, intact judgment & insight - Neurologic Neurologic: CNII-XII intact, moves all extremities Plan Activity: no restrictions Diet: regular Follow up with: ATIF ANDERSON MD [Primary Care Provider] - 7 Days
== END 2019-01-30 19:00 | disposition home or self-care (01) | DRG 871 ==
LOC: OR 13:17 → 3B-SURG 17:54 → OBSVTOIN 01-29 11:18
PROVIDERS: ADMIT Urology; ATTEND Urology
PROC: 0TJB8ZZ Inspection of Bladder, Via Natural or Artificial Opening Endoscopic (ICD-10-PCS; principal; 2019-01-28)
PROC: BT141ZZ Fluoroscopy of Kidneys, Ureters and Bladder using Low Osmolar Contrast (ICD-10-PCS; 2019-01-28)
PROC: BT121ZZ Fluoroscopy of Left Kidney using Low Osmolar Contrast (ICD-10-PCS; 2019-01-29)
PROC: BT171ZZ Fluoroscopy of Left Ureter using Low Osmolar Contrast (ICD-10-PCS; 2019-01-29)
PROC: 0T9430Z Drainage of Left Kidney Pelvis with Drainage Device, Percutaneous Approach (ICD-10-PCS; 2019-01-29)
PROC: BT42ZZZ Ultrasonography of Left Kidney (ICD-10-PCS; 2019-01-29)
DX: A41.9 Sepsis, unspecified organism (principal); N17.0 Acute kidney failure with tubular necrosis; N13.6 Pyonephrosis; Z79.899 Other long term (current) drug therapy
CPT/HCPCS: 36415; 50432; 74420; 80048; 81025; 85007; 85025; 85610; 85730; 87076; 87086; 87186; G0378; C1726; C1729; C1758; C1769; C2617; J0690; J1100; J1170; J1885; J1956; J2001; J2250; J2270; J2405; J2704; J3010; J7030; J7120; Q9967

== ENCOUNTER 2019-02-12 06:23 | Day surgery (SDC) | payer BC ==
[2019-02-12] MEDS ORDERED: NACL 0.9% 500 ML 500 ML ONE (06:49)
[2019-02-12] MEDS ORDERED: NACL 0.9% 500 ML 500 ML IV SCH (07:00)
[2019-02-12 07:10] LABS: Hematocrit 32.5 % (30.3-42.9); Hemoglobin 10.8 gm/dl (10.1-14.3); Mean Corpuscular HGB Conc 33 % (30-34); Mean Corpuscular Volume 96 fl (79-97); Platelet Count 340 K/mm3 (140-440); Red Blood Count 3.38 M/mm3 (3.65-5.03); Red Cell Distribution Width 13.5 % (13.2-15.2)
[2019-02-12 07:18] LABS: INR 0.89 (0.87-1.13)
[2019-02-12 07:19] LABS: Partial Thromboplastin Time 28.8 Sec. (24.2-36.6)
[2019-02-12 08:13] LABS: BUN/Creatinine Ratio 14; Blood Urea Nitrogen 11 mg/dL (7-17); Calcium 8.6 mg/dL (8.4-10.2); Hemolysis Index 9
[2019-02-12] MEDS ORDERED: NACL 0.9% 500 ML IR ONE (08:58)
[2019-02-12] MEDS ORDERED: ANCEF/STERILE WATER 2 GM/20 ML 2 GM/20 ML SYRINGE IV ONE (08:59)
[2019-02-12] MEDS ORDERED: XYLOCAINE 2% INFILTRATI ONE (08:59)
[2019-02-12] MEDS: VERSED ONE ×3 (09:18→09:30)
[2019-02-12] MEDS: SUBLIMAZE ONE ×3 (09:18→09:30)
--- NOTE | 2019-02-12 10:13 | Short Stay Summary ---
Short Stay Documentation Date of service: 02/12/19 Narrative H&P: 38 year old female with prior left pyonephrosis who presents for ureteral stent placement and possible nephrostomy exchange or removal. - History Principal diagnosis: Pyonephrosis/Hydronephrosis Past Medical History: other (renal stones) Past Surgical History: Other (left nephrostomy tube) Social history: no significant social history - Allergies and Medications Current Medications: Allergies No Known Allergies Allergy (Unverified 01/26/19 14:50) Active Medications Sodium Chloride (Nacl 0.9% 500 Ml) 500 mls @ 50 mls/hr IV DIRECT VINICIUS Last Admin: 02/12/19 07:39 Dose: 50 mls/hr Documented by: - Physical exam General appearance: no acute distress Lungs: Normal air movement Gastrointestinal: normal - Brief post op/procedure progress note Date of procedure: 02/12/19 Pre-op diagnosis: Pyonephrosis/hydronephrosis, left side Post-op diagnosis: same Procedure: 1. Left nephrostogram and ureterography 2. Fluoroscopic guided placement of a left 6 Fr x 28 cm ureteral stent 3. 8 Fr nephrostomy tube exchange Anesthesia: local (w/ conscious sedation) Surgeon: ZULEYMA FINN Estimated blood loss: minimal Condition: stable - Hospital course Hospital course: Ready for discharge. Provided saline flush and alcohol wipes to clean and flush nephrostomy tube twice a day. Bag provided incase of emergency. - Disposition Condition at discharge: Stable Disposition: DC-01 TO HOME OR SELFCARE - Discharge Diagnoses (1) Pyonephrosis Status: Acute (2) Hydronephrosis Status: Acute (3) Renal calculi Status: Acute (4) Obstruction of kidney Status: Acute Short Stay Discharge Plan Activity: advance as tolerated Weight Bearing Status: Weight Bear as Tolerated Diet: regular Wound: keep clean and dry, other (flush nephrostomy tube twice a day. Put on gloves. Clean the end of the with alcohol wipes. Flush with 10 mL saline sterile flush. Plan for removal on saturday.) Follow up with: LATRICIA CAMACHO MD [Other] - 7 Days
[2019-02-12] MEDS ORDERED: ZOFRAN IV ONE (10:29)
[2019-02-12] MEDS ORDERED: ZOFRAN ONE (10:29)
--- NOTE | 2019-02-12 10:30 | Operative Report ---
Operative Report Operative Report: EXAM: 1. Nephrostogram through the indwelling left 8 [place] nephrostomy tube. 2. Left 8 [place] nephrostomy tube exchange 3. Left ureteral stent placement, 6 [place] 28 cm DATE: 02/12/19 COURT USHER: ZULEYMA FINN MD INDICATION: Left-sided hydronephrosis and pyelonephrosis requiring nephrostomy tube placement after unsuccessful ureteral stent placement by cystoscopy who now presents for internalization. MEDICATIONS: Please see nursing report for full details. DEVICES: 8 [place] nephrostomy tube 6 [place] 28 cm ureteral stent CONTRAST: Please see lab assistant report for full details. PROCEDURE: The risks, benefits, and alternatives were discussed with the patient; written informed consent was obtained. The patient was brought to the angiography suite in satisfactory condition. The patient was placed in a prone position. The tubes were prepped and draped in a sterile fashion. The left nephrostomy tube was evaluated and determined to be intact. The tract demonstrated no evidence of superficial tract infection. 1% lidocaine was injected around the nephrostomy tube for local anesthetic. Contrast was injected through the existing nephrostomy tube confirming position. The nephrostomy tube was cut. 0.035 inch Bradley wire was passed into the renal collecting system. The nephrostomy tube was removed over a wire. Contrast nephrostogram demonstrated mild left hydronephrosis with severe tortuosity of the proximal ureter and an obstructing calculi in the left distal ureter. Angled catheter was advanced over the wire and with use of multiple wires and the angled catheter, the catheter was passed into the bladder and the tortuosity of the ureter was straightened. Wire was exchanged for an Amplatz wire. 7 [place] sheath was advanced over the wire and a Bradley hillary wire was passed through the sheath. Sheath was removed and re-inserted over the Amplatz wire. 6 [place] by 28 cm ureteral stent was then advanced through the sheath and the sheath was removed and the stent was deployed in the renal pelvis and the bladder. There was some mild oozing from the tract and therefore I decided to place a nephrostomy tube back into the renal pelvis to tamponade the oozing. A new nephrostomy tube was advanced over the hillary wire into the collecting system. The wire and plastic stiffener were removed under fluoroscopic guidance. [place] loop was formed in the renal pelvis. Contrast was injected confirming position in the renal pelvis. Contrast was then aspirated and saline was injected and aspirated through the collecting system. Contrast nephrostogram demonstrated a functioning ureteral stent. The nephrostomy tube was in appropriate position. The ureteral stent was in appropriate position. The catheter was secured with a 2-0 Ethilon. Sterile dressing was applied. The catheter was connected to a reflux valve and patient was provided 10 mL syringes with saline and alcohol wipes to flush the catheter. The patient tolerated the procedure without issue. The patient was transferred to the OPPU area without issue. She was then set up for saturday for nephrostomy tube removal. FINDINGS: Please see procedure note above. IMPRESSION: Successful nephrostogram and nephrostomy tube exchange of an 8 nephrostomy tube. Successful left sided ureteral stent placement.
[2019-02-12 13:08] VITALS: BP 132/95
== END 2019-02-12 11:45 | disposition home or self-care (01) ==
LOC: CATHLABREC 06:23
PROVIDERS: ATTEND Radiology Diagnostic Radiology
DX: N13.30 Unspecified hydronephrosis (principal); N28.89 Other specified disorders of kidney and ureter; F17.210 Nicotine dependence, cigarettes, uncomplicated; Z87.440 Personal history of urinary (tract) infections; Z87.442 Personal history of urinary calculi; Z79.899 Other long term (current) drug therapy; Z83.3 Family history of diabetes mellitus; Z82.49 Family history of ischemic heart disease and other diseases of the circulatory system
CPT/HCPCS: 36415; 50435; 50693; 80048; 85027; 85610; 85730; 96374; 99156; 99157; C1729; C1769; C1894; C2617; J0690; J2250; J2405; J3010; J7040; Q9967

== ENCOUNTER 2019-02-16 06:19 | Day surgery (SDC) | payer BC ==
[2019-02-16] MEDS ORDERED: NACL 0.9% 500 ML 500 ML IV SCH (07:00)
[2019-02-16] MEDS ORDERED: HEPARIN/NS 5000 UNIT/500ML(CATH LAB) 0 ML IR ONE (08:28)
[2019-02-16] MEDS ORDERED: XYLOCAINE 1%/ EPI 1:100,000 INFILTRATI ONE (08:29)
[2019-02-16] MEDS ORDERED: LEVAQUIN 500MG/100ML 500 MG/100 ML BAG IV ONE (08:42)
[2019-02-16] MEDS ORDERED: NACL 0.9% 500 ML IR ONE (08:42)
[2019-02-16] MEDS ORDERED: SUBLIMAZE ONE (08:44)
[2019-02-16] MEDS ORDERED: VERSED ONE (08:44)
--- NOTE | 2019-02-16 09:14 | Short Stay Summary ---
Short Stay Documentation Date of service: 02/16/19 Narrative H&P: 38 year old female with nephrostomy tube placement, subsequent nephrostomy exchange and ureteral stent placement who now presents for nephrostomy tube removal. - History Principal diagnosis: Ureteral calculi with hydronephrosis and pyonephrosis H&P: obtained from office Past Medical History: other (renal calculi) Past Surgical History: Other (nephrostomy tube placement) Social history: no significant social history - Allergies and Medications Current Medications: Allergies No Known Allergies Allergy (Unverified 01/26/19 14:50) Home Medications Medication Instructions Recorded Confirmed Last Taken Type Ciprofloxacin HCl [Ciprofloxacin 500 mg PO BID #20 tab 02/16/19 Unknown Rx TAB] HYDROcodone/APAP 5-325 [[place] 1 each PO Q6HR PRN #10 tablet 02/16/19 Unknown Rx 5/325] Active Medications Sodium Chloride (Nacl 0.9% 500 Ml) 500 mls @ 50 mls/hr IV DIRECT VINICIUS Last Admin: 02/16/19 07:13 Dose: 50 mls/hr Documented by: - Physical exam General appearance: no acute distress Lungs: Normal air movement Gastrointestinal: other (mild left flank and pelvic pain (ureteral calculi)) - Brief post op/procedure progress note Date of procedure: 02/16/19 Pre-op diagnosis: Ureteral calculi with hydronephrosis and pyonephrosis Post-op diagnosis: same Procedure: Nephrostogram and nephrostomy tube removal Anesthesia: local (w/ conscious sedation) Surgeon: ZULEYMA FINN Estimated blood loss: minimal Condition: stable - Hospital course Hospital course: Ready for discharge - Disposition Condition at discharge: Stable Disposition: DC-01 TO HOME OR SELFCARE - Discharge Diagnoses (1) Hydronephrosis Status: Acute (2) Obstruction of kidney Status: Acute (3) Pyonephrosis Status: Acute (4) Renal calculi Status: Acute Short Stay Discharge Plan Activity: advance as tolerated Weight Bearing Status: Weight Bear as Tolerated Diet: renal Wound: keep clean and dry (keep dressing on for 48 hrs, then remove and replace with bandaid or gauze with tape ; take antibiotics until completed ; nephrostomy tube site should close in 3-5 days) Follow up with: GOVIND CAMACHO NP [Other] - 7 Days Prescriptions: Ciprofloxacin HCl [Ciprofloxacin TAB] 500 mg PO BID #20 tab HYDROcodone/APAP 5-325 [Contin[place] 5/325] 1 each PO Q6HR PRN #10 tablet PRN Reason: Pain
--- NOTE | 2019-02-16 09:15 | Operative Report ---
Operative Report Operative Report: EXAM: Nephrostogram and fluoroscopically guided nephrostomy tube removal with indwelling ureteral stent DATE: 02/16/19 BUILDING WRECKER: ZULEYMA FINN MD INDICATION: 38-year-old female with left-sided ureteral calculi and nephrostomy tube placement for pyonephrosis who subsequently had nephrostomy tube exchange and ureteral stent placement and now presents for nephrostomy tube removal. MEDICATIONS: Please see nursing report for full details. CONTRAST: Please see laboratory technician report for full details. PROCEDURE: The risks, benefits, and alternatives were discussed with the patient and her fianc; written informed consent was obtained. Patient was brought to the fluoroscopy suite and placed in a prone position. The nephrostomy tube was prepped and draped in a sterile fashion. Contrast was injected to the nephrostomy tube which demonstrated that the contrast easily passed through the indwelling ureteral stent into the bladder. There was minimal hydronephrosis. After contrast was injected, the tube was and a Bradley wire was passed through the nephrostomy tube. The nephrostomy tube was removed over a wire. In order to remove the wire without dislodging the ureteral stent, angled catheter was advanced over the wire and the wire was removed. Catheter was then removed. 4 x 4 and Tegaderm were applied to the nephrostomy tube site. Patient tolerated the procedure well. No immediate postprocedure complication. Patient was provided antibiotics and pain medication. She will follow-up with urology in 7-14 days. FINDINGS: Please see procedure note above. IMPRESSION: Successful left-sided nephrostogram and fluoroscopically guided nephrostomy tube removal with indwelling ureteral stent.
[2019-02-16] MEDS ORDERED: ZOFRAN IV ONE (09:56)
[2019-02-16 10:17] VITALS: BP 129/95
== END 2019-02-16 10:35 | disposition home or self-care (01) ==
LOC: CATHLABREC 06:19
PROVIDERS: ATTEND Radiology Diagnostic Radiology
DX: N13.2 Hydronephrosis with renal and ureteral calculous obstruction (principal); N17.9 Acute kidney failure, unspecified; F17.210 Nicotine dependence, cigarettes, uncomplicated; Z79.899 Other long term (current) drug therapy; Z87.440 Personal history of urinary (tract) infections; Z83.3 Family history of diabetes mellitus
CPT/HCPCS: 50389; 96365; J1956; J2250; J2405; J3010; J7040; 96374; J1644; Q9967

== ENCOUNTER 2019-02-25 12:09 | Day surgery (SDC) | payer BC ==
[~2019-02-25 12:09] MED LIST: ANCEF/STERILE WATER 2 GM/20 ML 2 GM/20 ML SYRINGE IV NR
[2019-02-25] MEDS ORDERED: ANCEF/STERILE WATER 2 GM/20 ML IV NR (12:18)
[2019-02-25] MEDS ORDERED: LACTATED RINGERS 1,000 ML IV SCH (13:00)
--- NOTE | 2019-02-25 13:02 | Anesthesia Consultation ---
Anesthesia Consult and Med Hx Date of service: 02/25/19 - Airway Anesthetic Teeth Evaluation: Poor (upper gum only front incisors present) ROM Head & Neck: Adequate Mental/Hyoid Distance: Adequate Mallampati Class: Class II Intubation Access Assessment: Good - Pulmonary Exam CTA: Yes - Cardiac Exam Cardiac Exam: RRR - Pre-Operative Health Status ASA Pre-Surgery Classification: ASA2 Proposed Anesthetic Plan: General - Pulmonary Hx Asthma: No COPD: No Hx Pneumonia: No - Endocrine Hx End Stage Renal Disease: No
[2019-02-25] MEDS ORDERED: DILAUDID IV PRN (13:03)
[2019-02-25] MEDS ORDERED: ZOFRAN IV PRN (13:03)
--- NOTE | 2019-02-25 13:03 | Anesthesia Day of Surgery ---
Anesthesia Day of Surgery - Day of Surgery Patient Examined: Yes Patient H&P Reviewed: Yes Patient is NPO: Yes
[2019-02-25] MEDS ORDERED: SUBLIMAZE ONE (13:58)
[2019-02-25] MEDS ORDERED: DIPRIVAN 10 MG/ML IV ONE (13:58)
[2019-02-25] MEDS ORDERED: XYLOCAINE MPF 2% ONE (13:58)
[2019-02-25] MEDS ORDERED: WATER FOR IRRIG STERILE IR ONE ×2 (14:27→14:33)
[2019-02-25] MEDS ORDERED: ZOFRAN ONE (14:43)
[2019-02-25] MEDS ORDERED: DECADRON ONE (14:43)
--- NOTE | 2019-02-25 15:11 | Short Stay Summary ---
Short Stay Documentation Date of service: 02/25/19 - History H&P: obtained from office - Allergies and Medications Current Medications: Allergies No Known Allergies Allergy (Unverified 01/26/19 14:50) Home Medications Medication Instructions Recorded Confirmed Last Taken Type No Known Home Medications [No 02/25/19 02/25/19 Unknown History Reported Home Medications] Active Medications Cefazolin Sodium (Ancef/Sterile Water 2 Gm/20 Ml) 2 gm IV PREOP NR Stop: 02/25/19 23:59 Hydromorphone HCl (Dilaudid) 0.5 mg IV Q10MIN PRN PRN Reason: Pain , Severe (7-10) Stop: 02/25/19 23:59 Lactated Ringer's (Lactated Ringers) 1,000 mls @ 100 mls/hr IV DIRECT VINICIUS Last Admin: 02/25/19 13:15 Dose: 100 mls/hr Documented by: Ondansetron HCl (Zofran) 4 mg IV ONCE PRN PRN Reason: Nausea And Vomiting - Brief post op/procedure progress note Date of procedure: 02/25/19 Pre-op diagnosis: left ureteral stone (s/p perc & internal stent) Post-op diagnosis: same Procedure: cysto, rpg, ureteroscopy, stone extraction, stent exchange with external string Anesthesia: MAXIMILIAN Surgeon: RHIANNA SHERIDAN Estimated blood loss: minimal Pathology: none Condition: stable - Hospital course Hospital course: diflucan on chart pt has cipro,norco,ultram& zofran - Disposition Condition at discharge: Stable Disposition: DC-01 TO HOME OR SELFCARE Short Stay Discharge Plan Follow up with: FREEMAN CALLAHAN [Other] - 7 Days
--- NOTE | 2019-02-25 15:22 | Post Anesthesia Evaluation ---
- Post Anesthesia Evaluation Patient Participated: Yes Airway Patent: Yes Stable Respiratory Function: Yes Nausea/Vomiting: No Temp > 96.8F: Yes Pain Manageable: Yes Adequeate Hydration: Yes Anesthesia Complications: No Block Receding Appropriately: Not Applicable Patient on Ventilator: No
--- NOTE | 2019-02-25 15:37 | Fluoroscopy Report ---
FLUOROSCOPY RETROGRADE UROGRAPHY HISTORY: Calculus of left ureter FINDINGS: Fluoroscopy was provided by radiology during retrograde urography by the urologist. 9 fluor oscopic images were saved. 50 seconds of fluoroscopy time was utilized. Sock Folder film demonstrates a left ureteral stent in position. There is also an approximate 6 to 7 mm rodrick culus overlying the mid to distal left ureter. Subsequent images demonstrate left ureteroscopy and removal of the left ureteral stone. The left uret eral stent was replaced with good drainage of the left collecting system on the final image. IMPRESSION: Left ureteral calculus removal. Left ureteral stent replacement. Please correlate with the procedural report by urology as needed. Signer Name: Ezra Guzman Jr, MD Signed: 02/25/2019 3:32 PM Workstation Name: [id number]
[2019-02-25 15:51] VITALS: BP 135/75
--- NOTE | 2019-02-25 17:28 | Operative Report ---
PREOPERATIVE DIAGNOSIS: Right distal stone, status post left nephrostomy tube due to sepsis and impacted stone. POSTOPERATIVE DIAGNOSIS: Right distal stone, status post left nephrostomy tube due to sepsis and impacted stone. PROCEDURE: Cystoscopy, left retrograde pyelogram, left ureteroscopy, basket stone extraction, left double-J stent exchange (6-Swazi 24 cm) with an external string. SURGEON: Edward Sánchez MD. ANESTHESIA: General. ESTIMATED BLOOD LOSS: Minimal. FLUIDS: Crystalloid. COMPLICATIONS: No complications. INDICATIONS: This 38-year-old female initially seen in the office for significant left flank pain and nausea. She was subsequently set up for a cystoscopy and ureteroscopy. However, due to significant edema and impaction of the left ureteral stone, was not able to retrieve the stone and therefore, nephrostomy tube was placed. It was then internalized. She was seen in the office and we discussed options with her mom and they agreed to proceed with surgical intervention. They also have a family history of kidney stones. She also mentions she was having some itching suggesting yeast infection and therefore, we will give Diflucan postop also. DESCRIPTION OF PROCEDURE: The patient was taken to the operative suite, placed in a supine position. After adequate general anesthesia, placed in a dorsal lithotomy position, prepped and draped in a sterile fashion. Pancystourethroscopy was performed with a 22-Swazi Storz cystoscope. No bladder pathology. Obvious stent could be seen in the left collecting system with a 6-mm stone in the distal ureter. A wire was placed alongside of the stent. A 0.035 Glidewire was placed along the side of the stent. Stent was then engaged with a grasper and pulled to the urethra. A second wire was placed in the collecting system. Rigid ureteroscopy was then performed. Ureter was nice and dilated. Stone could be appreciated and the distal ureter was engaged with a 3-Swazi Brook basket and extracted. Then, scope was replaced. Ureteroscopy up to the renal pelvis. There was a kink in the proximal ureter. A retrograde pyelogram confirmed kinking of the ureter. No significant hydronephrosis proximal to the kink. The ureteroscope was removed. A 6-Swazi 24 cm double-J stent with an external string was left indwelling. Fluoroscopy confirmed adequate position. The patient tolerated the procedure well. She was extubated and taken to recovery room. We will give her a prescription of Diflucan today. She has a prescription for Cipro, Ryan, Ultram, and Zofran. JOB# [id number] [facility]/NTS
== END 2019-02-25 16:20 | disposition home or self-care (01) ==
LOC: OR 12:09
PROVIDERS: ATTEND Urology
DX: N20.1 Calculus of ureter (principal); F17.210 Nicotine dependence, cigarettes, uncomplicated; Z87.440 Personal history of urinary (tract) infections; Z79.899 Other long term (current) drug therapy; Z83.3 Family history of diabetes mellitus
CPT/HCPCS: 52332; 52352; 74420; 81025; A4217; C1758; C1769; C2617; J0690; J1100; J2405; J2704; J3010; J7120; Q9967

== ENCOUNTER 2020-10-21 07:28 | Emergency (ER) | payer SELFPAY ==
[2020-10-21] MEDS ORDERED: SODIUM CHLORIDE 0.9% 1000 ML 1,000 ML IV ONE (07:55)
[2020-10-21] MEDS ORDERED: diphenhydrAMINE 50 MG/ML VIAL IV ONE (07:55)
[2020-10-21] MEDS ORDERED: dexAMETHasone 20 MG/5 ML VIAL IV ONE (07:55)
[2020-10-21] MEDS ORDERED: KETOROLAC 30 MG/1 ML INJ IV ONE (07:55)
[2020-10-21] MEDS ORDERED: METOCLOPRAMIDE 10 MG/2 ML INJ IV ONE (07:55)
--- NOTE | 2020-10-21 07:58 | Event Note ---
ED Screening Note Date of service: 10/21/20 ED Screening Note: Patient complains of right-sided migraine States history of migraines and sinus headaches + Nausea and photophobia Denies worst headache of her life or vision changes Reports when her headaches are this bad, she has to go to the ER for IV medication This initial assessment/diagnostic orders/clinical plan/treatment(s) is/are subject to change based on patients health status, clinical progression and re- assessment by fellow clinical providers in the ED. Further treatment and workup at subsequent clinical providers discretion. Patient/guardian urged not to elope from the ED as their condition may be serious if not clinically assessed and managed. Initial orders include: Labs Meds
[2020-10-21 08:41] LABS: Hematocrit 39.8 % (30.3-42.9); Hemoglobin 13.3 gm/dl (10.1-14.3); Mean Corpuscular Volume 99 fl (79-97); Red Blood Count 4.01 M/mm3 (3.65-5.03)
[2020-10-21 08:42] LABS: Basophils # (Auto) 0.1 K/mm3 (0.0-0.1); Basophils % (Auto) 1.2 % (0.0-1.8); Eosinophils # (Auto) 0.1 K/mm3 (0.0-0.4); Lymphocytes # (Auto) 2.3 K/mm3 (1.2-5.4); Lymphocytes % (Auto) 44.6 % (13.4-35.0); Mean Corpuscular HGB Conc 33 % (30-34); Monocytes # (Auto) 0.6 K/mm3 (0.0-0.8); Monocytes % (Auto) 10.6 % (0.0-7.3); Platelet Count 192 K/mm3 (140-440)
--- NOTE | 2020-10-21 08:53 | Emergency Department Report ---
ED General Adult HPI - General Chief complaint: Headache Stated complaint: MIRGRAINE/SINUS Time Seen by Provider: 10/21/20 07:51 Source: patient Mode of arrival: Ambulatory Limitations: No Limitations - History of Present Illness Initial comments: Patient complains of right-sided migraine States history of migraines and sinus headaches + Nausea and photophobia Denies worst headache of her life, numbness/tingling/weakness in her limbs, vision changes, difficulty with speech/ambulation, confusion, or memory loss Reports when her headaches are this bad, she has to go to the ER for IV medication -: Gradual Severity scale (0 -10): 10 - Related Data Home Medications Medication Instructions Recorded Confirmed Last Taken No Known Home Medications [No 02/25/19 02/25/19 Unknown Reported Home Medications] Allergies Allergy/AdvReac Type Severity Reaction Status Date / Time No Known Allergies Allergy Unverified 01/26/19 14:50 ED Review of Systems ROS: Stated complaint: MIRGRAINE/SINUS Other details as noted in HPI Constitutional: denies: chills, fever, malaise Eyes: denies: eye pain, vision change ENT: denies: throat pain Respiratory: denies: cough, shortness of breath Cardiovascular: denies: chest pain Gastrointestinal: nausea. denies: abdominal pain, vomiting, diarrhea, constipation Neurological: headache. denies: weakness, numbness, paresthesias, confusion, abnormal gait, vertigo Hematological/Lymphatic: denies: easy bleeding, swollen glands ED Past Medical Hx - Past Medical History Previous Medical History?: Yes Hx Congestive Heart Failure: No Hx Diabetes: No Hx Kidney Stones: Yes Hx Asthma: No Hx COPD: No - Social History Smoking Status: Never Smoker Substance Use Type: None - Medications Home Medications: Home Medications Medication Instructions Recorded Confirmed Last Taken Type No Known Home Medications [No 02/25/19 02/25/19 Unknown History Reported Home Medications] ED Physical Exam - General Limitations: No Limitations General appearance: alert, in no apparent distress - Head Head exam: Present: atraumatic, normocephalic - Eye Eye exam: Present: normal appearance, PERRL, EOMI. Absent: scleral icterus - Neck Neck exam: Present: normal inspection, full ROM - Respiratory Respiratory exam: Present: normal lung sounds bilaterally. Absent: respiratory distress - Cardiovascular Cardiovascular Exam: Present: regular rate, normal rhythm - Neurological Exam Neurological exam: Present: alert, oriented X3, CN II-XII intact, normal gait. Absent: motor sensory deficit - Expanded Neurological Exam Expanded Cerebellar function: Finger to Nose: Normal, Heel to Henry: Normal, Romberg: Normal Sensory exam: Upper Extremity Light Touch: Normal, Lower Extremity Light Touch: Normal Motor strength exam: RUE: 5, LUE: 5, RLE: 5, LLE: 5 - Psychiatric Psychiatric exam: Present: normal affect, normal mood - Skin Skin exam: Present: warm, dry, intact, normal color. Absent: rash, cyanosis, diaphoretic, ecchymosis ED Course Vital Signs 10/21/20 07:50 Temperature 98.0 F Pulse Rate 72 Respiratory 18 Rate Blood Pressure 149/104 O2 Sat by Pulse 100 Oximetry ED Medical Decision Making - Lab Data Result diagrams: 10/21/20 08:03 10/21/20 08:03 Lab Results 10/21/20 10/21/20 10/21/20 Range/Units 08:03 08:03 08:03 WBC 5.2 (4.5-11.0) K/mm3 RBC 4.01 (3.65-5.03) M/mm3 Hgb 13.3 (10.1-14.3) gm/dl Hct 39.8 (30.3-42.9) % MCV 99 H (79-97) fl MCH 33 H (28-32) pg MCHC 33 (30-34) % RDW 13.0 L (13.2-15.2) % Plt Count 192 (140-440) K/mm3 Lymph % (Auto) 44.6 H (13.4-35.0) % [place] % (Auto) 10.6 H (0.0-7.3) % Eos % (Auto) 2.0 (0.0-4.3) % Baso % (Auto) 1.2 (0.0-1.8) % Lymph # (Auto) 2.3 (1.2-5.4) K/mm3 [place] # (Auto) 0.6 (0.0-0.8) K/mm3 Eos # (Auto) 0.1 (0.0-0.4) K/mm3 Baso # (Auto) 0.1 (0.0-0.1) K/mm3 Seg Neutrophils % 41.6 (40.0-70.0) % Seg Neutrophils # 2.2 (1.8-7.7) K/mm3 Sodium 138 (137-145) mmol/L Potassium 3.6 (3.6-5.0) mmol/L Chloride 104.1 (98-107) mmol/L Carbon Dioxide 22 (22-30) mmol/L Anion Gap 16 mmol/L BUN 8 (7-17) mg/dL Creatinine 0.8 (0.6-1.2) mg/dL Estimated GFR > 60 ml/min BUN/Creatinine Ratio 10 % Glucose 102 H (65-100) mg/dL Calcium 8.9 (8.4-10.2) mg/dL Total Bilirubin 0.40 (0.1-1.2) mg/dL AST 14 (5-40) units/L ALT 7 (7-56) units/L Alkaline Phosphatase 53 (35-129) units/L Total Protein 6.9 (6.3-8.2) g/dL Albumin 4.2 (3.9-5) g/dL Albumin/Globulin Ratio 1.6 % HCG, Qual Negative (Negative) - Medical Decision Making Patient complains of right-sided migraine States history of migraines and sinus headaches + Nausea and photophobia Denies worst headache of her life or vision changes Reports when her headaches are this bad, she has to go to the ER for IV medication Neuro exam is normal. Patient given migraine cocktail and states her headache has fully resolved after 30 minutes of treatment. She rates her pain as a 0/10 in severity. CBC shows elevated MCV and BP noted to be elevated at 146/101, patient denies history of hypertension-discussed possible B12 deficiency and hypertension and need for follow-up with PCP for further evaluation. Anion gap noted to be 16-discussed importance of hydration with water. Her vitals are normal, she is well-appearing, she is stable for discharge home. Strict return precautions were discussed in detail with patient who verbalizes understanding. Critical care attestation.: If time is entered above; I have spent that time in minutes in the direct care of this critically ill patient, excluding procedure time. ED Disposition Clinical Impression: Elevated blood pressure reading Migraine headache without aura Qualifiers: Status migrainosus presence: without status migrainosus Intractability: not intractable Qualified Code(s): G43.009 - Migraine without aura, not intractable, without status migrainosus Disposition: DC-01 TO HOME OR SELFCARE Is pt being admited?: No Condition: Stable Instructions: Migraine Headache, Hypertension, Adult Referrals: [facility] [Provider Group] - 10/24/20 (Blood pressure recheck ) YARELI SHEIKH MD [Staff Physician] - 3-5 Days
[2020-10-21 11:00] LABS: Alanine Aminotransferase 7 units/L (7-56); Albumin 4.2 g/dL (3.9-5); BUN/Creatinine Ratio 10; Blood Urea Nitrogen 8 mg/dL (7-17); Calcium 8.9 mg/dL (8.4-10.2); Hemolysis Index 5
[2020-10-21 14:47] VITALS: BP 154/99
== END 2020-10-21 09:19 | disposition home or self-care (01) ==
LOC: ED 07:28
DX: I10 Essential (primary) hypertension (principal); G43.909 Migraine, unspecified, not intractable, without status migrainosus
CPT/HCPCS: 36415; 80053; 84703; 85025; 96361; 96374; 96375; 99283; J1100; J1200; J1885; J2765; J7030

== ENCOUNTER 2020-12-06 10:30 | Emergency (ER) | payer SELFPAY | END 2020-12-06 12:32 | disposition left against medical advice (07) | LOC: ED 10:30 | DX: Z53.21 Procedure and treatment not carried out due to patient leaving prior to being seen by health care provider (principal) ==